=== PATIENT | female | born 1945 | race Caucasian/White ===

== ENCOUNTER 2023-04-12 18:56 | Inpatient (IN) | payer OTHER ==
[~2023-04-12] VITALS: Ht 165.1 cm; Wt 67.1 kg
[2023-04-12 19:28] VITALS: BP_SYST 151; PULSE 104; RESP 17; TEMP 97.7; O2SAT 97
[2023-04-12] MEDS ORDERED: NS 1000 ML IV.SOLN IV ONE (19:30)
[2023-04-12 20:22] LABS: HEMOGLOBIN 7.1 g/dL (12.0-16.0); MEAN CORPUSCULAR HEMOGLOBIN 31 pg (27-31); MEAN CORPUSCULAR HGB CONC 35 % (32-36); MEAN CORPUSCULAR VOLUME 87 fL (79.0-98.0); RED BLOOD CELL COUNT(AUTO) 2.32 MIL/uL (4.2-6.2); RED CELL DISTRIBUTION WIDTH 15.6 % (9.0-15.0)
[2023-04-12 20:42] LABS: ALANINE AMINOTRANSFERASE 11 U/L (12-78); ALBUMIN 2.8 g/dL (3.4-4.8); ANION GAP 10 (5-15); ASPARTATE AMINOTRANSFERASE 9 U/L (10-37); CALCIUM 8.3 mg/dL (8.4-11.0); CARBON DIOXIDE 27 mmol/L (23-29); CHLORIDE 86 mmol/L (98-107); CREATININE 1.37 mg/dL (0.55-1.30); GLUCOSE 145 mg/dL (74-106); POTASSIUM 3.4 mmol/L (3.5-5.1); SODIUM SERUM 123 mmol/L (136-145); TOTAL BILIRUBIN 0.8 mg/dL (0.0-1.0); TOTAL PROTEIN, SERUM 5.9 g/dL (6.4-8.3); UREA NITROGEN, BLOOD 19 mg/dL (8-21)
[2023-04-12 20:43] LABS: INR 1.2 (0.8-1.2); PROTHROMBIN TIME 12.2 SECS (9.5-12.5); WHITE BLOOD COUNT (AUTO) 0.2 K/uL (4.8-10.8)
[2023-04-12 20:44] LABS: HEMATOCRIT 20.2 % (36-48); PLATELET COUNT (AUTO) 28 K/uL (130-430)
[2023-04-12 20:45] LABS: CREATINE KINASE, TOTAL 25 U/L (26-192)
[2023-04-12 20:55] LABS: ANISOCYTOSIS 1+; BAND % (MANUAL) 0 % (0-6); BASOPHILS % (MANUAL) 0 % (0-2); EOSINOPHILS % (MANUAL) 0 % (0-7); LYMPHOCYTES % (MANUAL) 70 % (20-46); MONOCYTES % (MANUAL) 3 % (0-11); PLATELET ESTIMATE DECREASED (ADEQUATE); TEAR DROP CELLS RARE
[2023-04-12] MEDS ORDERED: PIPERACILLIN/TAZO 3.375 GM in NS 50 ML IV ONE (21:00)
[2023-04-12] MEDS ORDERED: PIPERACILLIN/TAZOBACTAM 3.375 GM/VIAL (ZOSYN) IV ONE (21:00)
[2023-04-12 21:18] LABS: BILIRUBIN,URINE NEGATIVE (NEGATIVE); BLOOD, URINE 1+ (NEGATIVE); CLARITY/URINE CLEAR (CLEAR); COLOR,URINE YELLOW (YELLOW); GLUCOSE,URINE NEGATIVE (NEGATIVE); KETONES,URINE TRACE (NEGATIVE); LEUKOCYTE ESTERASE ,URINE NEGATIVE (NEGATIVE); NITRITE, URINE NEGATIVE (NEGATIVE); PROTEIN URINE 2+ (NEGATIVE)
[2023-04-12 21:26] LABS: BACTERIA,URINE FEW /HPF (None Seen); RBC,URINE 0-3 /HPF (0-3); WBC,URINE 0-3 /HPF (0-3)
[2023-04-12 21:27] LABS: MUCUS,URINE None Seen /LPF (None Seen)
[2023-04-12] MEDS ORDERED: PANT40TA45 PO (22:38)
[2023-04-12] MEDS ORDERED: OXYB5TAB16 PO (22:38)
[2023-04-12] MEDS ORDERED: LOSA1TAB43 PO (22:38)
[2023-04-12 23:15] LABS: INFLUENZA TYPE A negative (NEGATIVE); INFLUENZA TYPE B NEGATIVE (NEGATIVE)
[2023-04-13] VITALS (8 sets, daily range): BP systolic 127–134; PULSE 95–104; RESP 15–22; TEMP 96.8–98.4; O2SAT 94–100
[2023-04-13] MEDS ORDERED: ACETAMINOPHEN 325 MG TABLET PO PRN ×2 (10:15→10:30)
[2023-04-13] MEDS ORDERED: HYDROcodone/ACETAMIN 5-325 MG TAB (NORCO/ VICODIN) PO PRN (10:15)
[2023-04-13] MEDS ORDERED: HYDROcodone/ACETAMIN 10-325 MG TAB PO PRN (10:15)
[2023-04-13] MEDS ORDERED: LORazepam 2 MG/ML VIAL IVP PRN (10:15)
[2023-04-13] MEDS ORDERED: NON-FORMULARY MEDICATION (Losartan/Hctz* (Losartan-Hctz 100-12.5 Mg Tab*) 1 TAB) PO SCH (10:15)
[2023-04-13] MEDS ORDERED: ONDANSETRON HCL 4 MG/2 ML VIAL IVP PRN (10:15)
[2023-04-13] MEDS ORDERED: NALOXONE HCL 0.4 MG/ML AMP (NARCAN) IVP PRN ×2 (10:15)
[2023-04-13] MEDS ORDERED: PANTOPRAZOLE SODIUM 40 MG TAB PO ONE (10:30)
[2023-04-13] MEDS ORDERED: LOSARTAN POTASSIUM 50 MG TABLET (COZAAR) PO ONE (10:45)
[2023-04-13] MEDS ORDERED: HYDROCHLOROTHIAZIDE 12.5 MG CAPSULE (HCTZ) PO ONE (10:45)
[2023-04-13] MEDS ORDERED: oxyBUTYnin chloride 5 MG TABLET PO ONE (10:45)
[2023-04-13] MEDS ORDERED: TBO-FILGRASTIM 480 MCG/0.8 ML SYRINGE SUBCUT ONE (11:00)
[2023-04-13] MEDS: NORMAL SALINE 5 ML DISP.SYRIN IVF SCH ×2 (13:30→21:42)
[2023-04-13] MEDS ORDERED: CEFEPIME 2 GM in D5W 100 ML IV ONE (14:00)
[2023-04-13 15:52] LABS: ANION GAP 6 (5-15); CALCIUM 8.1 mg/dL (8.4-11.0); CARBON DIOXIDE 27 mmol/L (23-29); CHLORIDE 92 mmol/L (98-107); CREATININE 0.78 mg/dL (0.55-1.30); GLUCOSE 112 mg/dL (74-106); SODIUM SERUM 125 mmol/L (136-145); UREA NITROGEN, BLOOD 14 mg/dL (8-21)
[2023-04-13] MEDS ORDERED: POTASSIUM CHLORIDE 40 MEQ in NS 250 ML IV ONE (19:30)
[2023-04-13] MEDS ORDERED: KCL 40 mEq in 100 mL (PREMIX) 100 ML IV ONE (21:29)
[2023-04-13] MEDS: CEFEPIME 2 GM in D5W 100 ML IV SCH (21:40)
[2023-04-14] VITALS (10 sets, daily range): BP systolic 100–144; PULSE 58–96; RESP 12–22; TEMP 97.1–97.5; O2SAT 95–98
[2023-04-14] MEDS: NORMAL SALINE 5 ML DISP.SYRIN IVF SCH ×3 (06:04→22:16)
[2023-04-14 07:02] LABS: ANION GAP 8 (5-15); CALCIUM 8.3 mg/dL (8.4-11.0); CARBON DIOXIDE 26 mmol/L (23-29); CHLORIDE 91 mmol/L (98-107); GLUCOSE 119 mg/dL (74-106); PHOSPHORUS 2.3 mg/dL (2.7-4.5); SODIUM SERUM 125 mmol/L (136-145); UREA NITROGEN, BLOOD 10 mg/dL (8-21)
[2023-04-14 07:04] LABS: BASOPHILS % (AUTO) 0.2 % (0.0-2.0); EOSINOPHILS % (AUTO) 0.6 % (0.0-4.0); LYMPHOCYTES # (AUTO) 0.2 K/uL (1.0-5.5); LYMPHOCYTES % (AUTO) 35.2 % (20.5-51.5); MEAN CORPUSCULAR HEMOGLOBIN 31 pg (27-31); MEAN CORPUSCULAR HGB CONC 36 % (32-36); MEAN CORPUSCULAR VOLUME 87 fL (79.0-98.0); MONOCYTES # (AUTO) 0.1 K/uL (0.0-1.0); MONOCYTES % (AUTO) 25.3 % (1.7-9.3); NEUTROPHILS % (AUTO) 38.7 % (40.0-70.0); RED BLOOD CELL COUNT(AUTO) 2.13 MIL/uL (4.2-6.2); RED CELL DISTRIBUTION WIDTH 15.4 % (9.0-15.0)
[2023-04-14 07:12] LABS: TOTAL IRON BIND. CAPACITY 143 ug/dL (250-450); WHITE BLOOD COUNT (AUTO) 0.5 K/uL (4.8-10.8)
[2023-04-14 07:13] LABS: HEMATOCRIT 18.5 % (36-48); HEMOGLOBIN 6.6 g/dL (12.0-16.0); NEUTROPHILS # (AUTO) 0.2 K/uL (1.8-7.7); PLATELET COUNT (AUTO) 30 K/uL (130-430)
[2023-04-14] MEDS: PANTOPRAZOLE SODIUM 40 MG TAB PO SCH (08:24)
[2023-04-14] MEDS: LOSARTAN POTASSIUM 50 MG TABLET (COZAAR) PO SCH (08:24)
[2023-04-14] MEDS: oxyBUTYnin chloride 5 MG TABLET PO SCH (08:25)
[2023-04-14] MEDS: CEFEPIME 2 GM in D5W 100 ML IV SCH ×2 (08:49→21:03)
[2023-04-14] MEDS ORDERED: HYDROCHLOROTHIAZIDE 12.5 MG CAPSULE (HCTZ) PO SCH (09:00)
[2023-04-14] MEDS ORDERED: POTASSIUM CHLORIDE 40 MEQ in NS 250 ML IV ONE (10:00)
[2023-04-14] MEDS ORDERED: NA PHOS 30 MM in NS 250 ML IV ONE (11:30)
[2023-04-14] MEDS: MICAFUNGIN SODIUM 100 MG in NS 100 ML IV SCH (17:00)
[2023-04-14] MEDS: TBO-FILGRASTIM 480 MCG/0.8 ML SYRINGE SUBCUT SCH (17:51)
[2023-04-14] MEDS: ACYCLOVIR IV 500 MG in D5W 100 ML IV SCH (22:15)
[2023-04-15] VITALS (8 sets, daily range): BP systolic 103–137; PULSE 67–95; RESP 16–18; TEMP 97.2–98.3; O2SAT 67–99
[2023-04-15] MEDS: ACYCLOVIR IV 500 MG in D5W 100 ML IV SCH ×3 (05:29→22:34)
[2023-04-15 05:30] LABS: ERYTHROCYTE SEDIMENTATION RATE 39 MM/HR (0-20)
[2023-04-15 05:31] LABS: BASOPHILS # (AUTO) 0.1 K/uL (0.0-0.2); BASOPHILS % (AUTO) 3.4 % (0.0-2.0); HEMATOCRIT 25.4 % (36-48); HEMOGLOBIN 9.1 g/dL (12.0-16.0); LYMPHOCYTES # (AUTO) 0.3 K/uL (1.0-5.5); LYMPHOCYTES % (AUTO) 13.5 % (20.5-51.5); MEAN CORPUSCULAR HEMOGLOBIN 31 pg (27-31); MEAN CORPUSCULAR HGB CONC 36 % (32-36); MEAN CORPUSCULAR VOLUME 87 fL (79.0-98.0); MONOCYTES # (AUTO) 0.3 K/uL (0.0-1.0); MONOCYTES % (AUTO) 14.9 % (1.7-9.3); NEUTROPHILS # (AUTO) 1.6 K/uL (1.8-7.7); NEUTROPHILS % (AUTO) 68.2 % (40.0-70.0); PLATELET COUNT (AUTO) 53 K/uL (130-430); RED BLOOD CELL COUNT(AUTO) 2.91 MIL/uL (4.2-6.2); RED CELL DISTRIBUTION WIDTH 14.9 % (9.0-15.0); WHITE BLOOD COUNT (AUTO) 2.3 K/uL (4.8-10.8)
[2023-04-15] MEDS: NORMAL SALINE 5 ML DISP.SYRIN IVF SCH ×3 (05:36→22:34)
[2023-04-15 06:11] LABS: ALBUMIN 2.2 g/dL (3.4-4.8); ANION GAP 12 (5-15); ASPARTATE AMINOTRANSFERASE 10 U/L (10-37); CALCIUM 7.7 mg/dL (8.4-11.0); CARBON DIOXIDE 23 mmol/L (23-29); CHLORIDE 93 mmol/L (98-107); CREATININE 0.68 mg/dL (0.55-1.30); GLUCOSE 123 mg/dL (74-106); PHOSPHORUS 2.7 mg/dL (2.7-4.5); SODIUM SERUM 128 mmol/L (136-145); TOTAL BILIRUBIN 1.6 mg/dL (0.0-1.0); TOTAL PROTEIN, SERUM 5.2 g/dL (6.4-8.3); UREA NITROGEN, BLOOD 5 mg/dL (8-21)
[2023-04-15 06:19] LABS: ALANINE AMINOTRANSFERASE < 5 U/L (12-78)
[2023-04-15 06:22] LABS: POTASSIUM 2.7 mmol/L (3.5-5.1)
[2023-04-15] MEDS: oxyBUTYnin chloride 5 MG TABLET PO SCH (08:29)
[2023-04-15] MEDS: CEFEPIME 2 GM in D5W 100 ML IV SCH ×2 (08:29→21:23)
[2023-04-15] MEDS: LOSARTAN POTASSIUM 50 MG TABLET (COZAAR) PO SCH (08:30)
[2023-04-15] MEDS: PANTOPRAZOLE SODIUM 40 MG TAB PO SCH (08:30)
[2023-04-15] MEDS ORDERED: POTASSIUM CHLORIDE 40 MEQ in NS 250 ML IV ONE ×2 (11:45→13:00)
[2023-04-15] MEDS ORDERED: MAGNESIUM SULFATE 50 ML IV ONE (11:45)
[2023-04-15] MEDS ORDERED: KCL 40 mEq in 100 mL (PREMIX) 100 ML IV ONE (11:45)
[2023-04-15] MEDS ORDERED: NYSTATIN 500,000 UNITS/5 ML UDC PO SCH (12:30)
[2023-04-15] MEDS ORDERED: NYSTATIN 500,000 UNITS/5 ML UDC PO ONE (12:45)
[2023-04-15] MEDS ORDERED: SPIRONOLACTONE 25 MG TABLET (ALDACTONE) PO ONE (12:45)
[2023-04-15] MEDS: NYSTATIN 500,000 UNITS/5 ML UDC PO SCH (17:30)
[2023-04-15] MEDS: TBO-FILGRASTIM 480 MCG/0.8 ML SYRINGE SUBCUT SCH (17:31)
[2023-04-15] MEDS: MICAFUNGIN SODIUM 100 MG in NS 100 ML IV SCH (17:31)
[2023-04-16] MEDS ORDERED: KCL 40 mEq in 100 mL (PREMIX) 100 ML IV ONE (00:03)
[2023-04-16] MEDS: NYSTATIN 500,000 UNITS/5 ML UDC PO SCH ×3 (00:13→11:58)
[2023-04-16 00:50] VITALS: BP_SYST 119; PULSE 92; RESP 16; TEMP 97.7; O2SAT 98
[2023-04-16 04:06] LABS: FOLATE (FOLIC ACID) 16.1 ng/mL (>3.0)
[2023-04-16 05:13] LABS: BASOPHILS % (AUTO) 0.3 % (0.0-2.0); HEMATOCRIT 25.5 % (36-48); HEMOGLOBIN 9.1 g/dL (12.0-16.0); LYMPHOCYTES # (AUTO) 0.4 K/uL (1.0-5.5); LYMPHOCYTES % (AUTO) 5.3 % (20.5-51.5); MEAN CORPUSCULAR HEMOGLOBIN 31 pg (27-31); MEAN CORPUSCULAR HGB CONC 36 % (32-36); MEAN CORPUSCULAR VOLUME 88 fL (79.0-98.0); MONOCYTES # (AUTO) 0.6 K/uL (0.0-1.0); MONOCYTES % (AUTO) 7.4 % (1.7-9.3); NEUTROPHILS # (AUTO) 6.9 K/uL (1.8-7.7); PLATELET COUNT (AUTO) 73 K/uL (130-430); RED BLOOD CELL COUNT(AUTO) 2.92 MIL/uL (4.2-6.2)
[2023-04-16 06:16] LABS: ANION GAP 9 (5-15); CARBON DIOXIDE 25 mmol/L (23-29); CHLORIDE 95 mmol/L (98-107); CREATININE 0.72 mg/dL (0.55-1.30); GLUCOSE 125 mg/dL (74-106); POTASSIUM 3.5 mmol/L (3.5-5.1); SODIUM SERUM 129 mmol/L (136-145); UREA NITROGEN, BLOOD 5 mg/dL (8-21)
[2023-04-16] MEDS: ACYCLOVIR IV 500 MG in D5W 100 ML IV SCH ×2 (06:18→13:36)
[2023-04-16] MEDS: NORMAL SALINE 5 ML DISP.SYRIN IVF SCH ×2 (06:19→13:37)
[2023-04-16] MEDS: CEFEPIME 2 GM in D5W 100 ML IV SCH (08:25)
[2023-04-16] MEDS: LOSARTAN POTASSIUM 50 MG TABLET (COZAAR) PO SCH (08:26)
[2023-04-16] MEDS: oxyBUTYnin chloride 5 MG TABLET PO SCH (08:27)
[2023-04-16] MEDS: PANTOPRAZOLE SODIUM 40 MG TAB PO SCH (08:27)
[2023-04-16 08:32] VITALS: BP_SYST 130; PULSE 101; RESP 18; TEMP 98.2; O2SAT 96
[2023-04-16] MEDS ORDERED: SPIRONOLACTONE 25 MG TABLET (ALDACTONE) PO SCH (09:00)
[2023-04-16 09:11] VITALS: O2SAT 100
[2023-04-16 11:46] VITALS: BP_SYST 123; PULSE 102; RESP 16; TEMP 98; O2SAT 97
[2023-04-16] MEDS ORDERED: BENZOCAINE/MENTHOL 1 EACH LOZENGE MM PRN (13:30)
[2023-04-16] MEDS ORDERED: DEXTROMET/BENZOCAIN/MENTHOL SF 1 LOZENGE MM PRN (13:30)
[2023-04-16] MEDS ORDERED: ACYC400T19 PO (14:48)
[2023-04-16] MEDS ORDERED: DIF100 PO (14:48)
[2023-04-16] MEDS ORDERED: CIPR250T4 PO (14:48)
[2023-04-16] MEDS ORDERED: BENZ1LOZ73 PO (14:50)
[2023-04-16 15:45] VITALS: BP_SYST 143; PULSE 98; RESP 20; TEMP 97.4; O2SAT 94
[2023-04-16 15:55] VITALS: BP_SYST 131; PULSE 100; RESP 18; TEMP 98.2; O2SAT 98
== END 2023-04-16 16:25 | disposition home or self-care (01) | DRG 809 ==
LOC: SED 18:56 → SMU 22:39
PROVIDERS: ADMIT Preventive Medicine Preventive Medicine/Occupational Environmental Medicine; ATTEND Specialist
PROC: 30233N1 Transfusion of Nonautologous Red Blood Cells into Peripheral Vein, Percutaneous Approach (ICD-10-PCS; principal; 2023-04-14)
DX: D70.1 Agranulocytosis secondary to cancer chemotherapy (principal); B00.2 Herpesviral gingivostomatitis and pharyngotonsillitis; B37.0 Candidal stomatitis; C83.10 Mantle cell lymphoma, unspecified site; E87.1 Hypo-osmolality and hyponatremia; E44.0 Moderate protein-calorie malnutrition; R65.10 Systemic inflammatory response syndrome (SIRS) of non-infectious origin without acute organ dysfunction; D61.810 Antineoplastic chemotherapy induced pancytopenia; T45.1X5A Adverse effect of antineoplastic and immunosuppressive drugs, initial encounter; R50.81 Fever presenting with conditions classified elsewhere; I10 Essential (primary) hypertension; N32.81 Overactive bladder; E83.39 Other disorders of phosphorus metabolism; Z20.822 Contact with and (suspected) exposure to COVID-19; E83.51 Hypocalcemia; E87.6 Hypokalemia; K21.9 Gastro-esophageal reflux disease without esophagitis; Z68.24 Body mass index [BMI] 24.0-24.9, adult; Y92.89 Other specified places as the place of occurrence of the external cause
CPT/HCPCS: 36415; 70450-TC; 71045; 76376; 80048; 80053; 81000; 82272; 82550; 82607; 82728; 82746; 83540; 83550; 83605; 83735; 84100; 84484; 85007; 85025; 85027; 85610-TC; 85651-TC; 85730-TC; 86886; 86900; 86901; 86920; 87040; 87081; 87086; 93005; 96361; 96365; 96375; 99291; J0133; J0692; J1447; J2248; J2543; J3475; J3480; J7050; J7060; P9021